=== PATIENT | female | born 1955 | race Caucasian/White ===

== ENCOUNTER 2018-12-30 20:26 | Emergency (ER) | payer OTHER ==
--- NOTE | 2018-12-30 21:33 | EDM.PDOC ---
ED HPI GENERAL MEDICAL PROBLEM - General Chief Complaint: Lower Extremity Injury/Pain Stated Complaint: fell and twisted left ankle Time Seen by Provider: 12/30/18 20:35 Source of Information: Reports: Patient History Limitations: Reports: No Limitations - History of Present Illness INITIAL COMMENTS - FREE TEXT/NARRATIVE: Patient comes to ER for evaluation of left ankle injury sustained at home when she tripped on a blanket. Able to partially bear weight. No numbness/tingling. Denies other injuries/problems. - Related Data Allergies Allergy/AdvReac Type Severity Reaction Status Date / Time ethylenediamine Allergy Nausea and Verified 12/30/18 20:30 Vomiting nickel Allergy unknown Verified 12/30/18 20:30 venlafaxine Allergy unknown Verified 12/30/18 20:30 Home Meds: Home Meds Albuterol [Proventil HFA] 2 puff INH Q4HR PRN 02/06/15 [History] Calcium Carbonate/Vitamin D3 [Calcium 500 + Vit D 400] 1 tab PO QAM 02/06/15 [ History] Citalopram [Citalopram HBr] 20 mg PO BEDTIME 02/06/15 [History] Tiotropium [Spiriva HandiHaler] 1 cap INH QAM 02/06/15 [History] Past Medical History Respiratory History: Reports: COPD Psychiatric History: Reports: Other (See Below) (mood disorder) Review of Systems - Review of Systems Review Of Systems: ROS reveals no pertinent complaints other than HPI. ED EXAM, GENERAL - Physical Exam Exam: See Below Exam Limited By: No Limitations General Appearance: Alert, WD/WN, No Apparent Distress Eye Exam: Bilateral Eye: EOMI, PERRL Throat/Mouth: Normal Voice, No Airway Compromise Head: Atraumatic, Normocephalic Neck: Supple Respiratory/Chest: No Respiratory Distress Peripheral Pulses: 2+: Dorsalis Pedis (L) Extremities: Other (mild swelling over lateral left ankle. Tender in this area. Tender over anterior distal fibula. Nontender medially. Foot otherwise nontender. NVI. Skin intact. No bruising/redness. ) Neurological: Alert, Oriented, Normal Cognition, Abnormal Gait (cannot fully bear weight on left ankle. ) Psychiatric: Normal Affect, Normal Mood Skin Exam: Warm, Dry, Intact, Normal Color Course - Vital Signs Last Recorded V/S: Last Vital Signs Temp Pulse 82 12/30/18 20:35 Resp 16 12/30/18 20:35 BP 150/73 H 12/30/18 20:35 Pulse Ox - Radiology Interpretation Free Text/Narrative:: Mild irregularity noted distal fibula above mortise. Not an obvious fracture, however is tender in this area. - Re-Assessments/Exams Free Text/Narrative Re-Assessment/Exam: 12/30/18 22:40 Uncertain if irregularity noted distal fibula represents fracture. Pending Radiology review. Placed in posterior splint for comfort and support. Patient refused crutches however. She promised to get help moving around the house from her as well as using furniture for support. Plan is to call her once reading has been obtained. Further planning at that time. Free Text/Narrative Re-Assessment/Exam: 01/02/19 04:11 Radiology review negative for acute fracture. Patient notified by nursing staff. Departure - Departure Time of Disposition: 21:31 Disposition: Home, Self-Care 01 Condition: Good Clinical Impression: Left ankle injury Qualifiers: Encounter type: initial encounter Qualified Code(s): S99.912A - Unspecified injury of left ankle, initial encounter - Discharge Information *PRESCRIPTION DRUG MONITORING PROGRAM REVIEWED*: Not Applicable *COPY OF PRESCRIPTION DRUG MONITORING REPORT IN PATIENT BIANCA: Not Applicable Instructions: Cast or Splint Care, Adult, [id number] Referrals: Rose Mary Busch PA-C [Primary Care Provider] - Forms: ED Department Discharge Additional Instructions: We plan on calling you when Radiology gives us an official xray reading. Further planning will depend on if they see if fracture or not. Avoid weight bearing on the injured ankle. OK to elevate for comfort. Tylenol ok for pain. Follow up otherwise as needed if there are additional problems.
[2018-12-31 00:23] VITALS: BP 150/73
== END 2018-12-30 23:15 | disposition home or self-care (01) ==
LOC: LL.ED 20:26
DX: S99.912A Unspecified injury of left ankle, initial encounter (principal); J44.9 Chronic obstructive pulmonary disease, unspecified; W22.8XXA Striking against or struck by other objects, initial encounter; Z88.8 Allergy status to other drugs, medicaments and biological substances; Z79.899 Other long term (current) drug therapy; Y92.009 Unspecified place in unspecified non-institutional (private) residence as the place of occurrence of the external cause
CPT/HCPCS: 29515; 73610-LT; 99283

== ENCOUNTER 2020-01-09 13:30 | Emergency (ER) | payer OTHER ==
[2020-01-09 13:50] VITALS: BP 141/71; PULSE 71
[2020-01-09 14:43] LABS: CHLORIDE,CL 105 mmol/L (98-107); SODIUM,NA 143 mmol/L (136-145)
--- NOTE | 2020-01-09 14:52 | EDM.PDOC ---
ED HPI GENERAL MEDICAL PROBLEM - General Chief Complaint: Upper Extremity Injury/Pain Stated Complaint: fall, left shoulder pain Time Seen by Provider: 01/09/20 13:55 Source of Information: Reports: Patient History Limitations: Reports: No Limitations - History of Present Illness INITIAL COMMENTS - FREE TEXT/NARRATIVE: Patient fell while coming down a ladder at work. Was not up very high. Estimates 3 feet. Ladder itself was around 6 feet. Hit back of left shoulder on metal display shelf (she thinks) on way to floor. Denies hitting head or LOC. Only complaint is pain in left scapular area. Initially pain was severe enough (9/10) that patient became nauseated. Received Fentanyl from EMS and pain improved significantly. Nausea resolved. Able to move left arm/shoulder better upon arrival to ER. Denies other pain/injuries. Able to get up off floor with assistance of another and ambulate/sit down. Left Shoulder Pain Score (Numeric/FACES): 2 - Related Data Allergies Allergy/AdvReac Type Severity Reaction Status Date / Time ethylenediamine Allergy Nausea and Verified 01/09/20 13:42 Vomiting nickel Allergy unknown Verified 01/09/20 13:42 venlafaxine Allergy unknown Verified 01/09/20 13:42 Home Meds: Home Meds Albuterol [Proventil HFA] 2 puff INH Q4HR PRN 02/06/15 [History] Calcium Carbonate/Vitamin D3 [Calcium 500 + Vit D 400] 1 tab PO QAM 02/06/15 [ History] Tiotropium [Spiriva HandiHaler] 1 cap INH QAM 02/06/15 [History] Cyanocobalamin (Vitamin B12) [Vitamin B12] 2 tab PO DAILY 01/09/20 [History] Ibuprofen 400 mg PO Q6H PRN 01/09/20 [History] Past Medical History HEENT History: Reports: Allergic Rhinitis, Impaired Vision Respiratory History: Reports: COPD [employer] History: Reports: Fibroids Psychiatric History: Reports: Other (See Below) (mood disorder) Hematologic History: Reports: B12 Deficiency, Blood Transfusion(s) Other Hematologic History: transfusion 1982 post surgical hemmorrhage - Past Surgical History GI Surgical History: Reports: Colonoscopy, EGD Female Surgical History: Reports: Hysterectomy Social & Family History - Tobacco Use Smoking Status *Q: Current Every Day Smoker Years of Tobacco use: 43 Packs/Tins Daily: 0.5 Second Hand Smoke Exposure: No - Caffeine Use Caffeine Use: Reports: Coffee Review of Systems - Review of Systems Review Of Systems: See Below Constitutional: Reports: No Symptoms Eyes: Reports: No Symptoms Ears: Reports: No Symptoms Nose: Reports: No Symptoms Mouth/Throat: Reports: No Symptoms Respiratory: Reports: No Symptoms. Denies: Shortness of Breath, Pleuritic Chest Pain, Hemoptysis Cardiovascular: Reports: No Symptoms GI/Abdominal: Reports: No Symptoms Genitourinary: Reports: No Symptoms Musculoskeletal: Reports: Other (pain left scapular area. Radiates towards neck. Denies pain in shoulders/arms/legs. ) Skin: Reports: Other (abrasion over left scapular area) Neurological: Reports: No Symptoms Psychiatric: Reports: No Symptoms ED EXAM, GENERAL - Physical Exam Exam: See Below Exam Limited By: No Limitations General Appearance: Alert, WD/WN, No Apparent Distress Eye Exam: Bilateral Eye: EOMI, PERRL Ears: Normal External Exam, Normal Canal Nose: No: Nasal Deformity, Nasal Swelling, Nasal Drainage Throat/Mouth: Normal Lips, Normal Voice, No Airway Compromise Head: Atraumatic, Normocephalic Neck: Supple, Full Range of Motion, Other (mild tenderness left posterior soft tissue). No: Tender Midline Respiratory/Chest: No Respiratory Distress, Lungs Clear, Normal Breath Sounds, No Accessory Muscle Use, Other (Tender with palpation over left scapula/ trapezius. Does not appear to have any tenderness with palpation of ribs/chest anteriorly or laterally. Right back nontender. Low back non-tender. Spine non- tender.) Cardiovascular: Normal Peripheral Pulses, Regular Rate, Rhythm, No Edema, No Murmur GI/Abdominal: Normal Bowel Sounds, Soft, Non-Tender, No Distention (Female) Exam: Deferred Rectal (Female) Exam: Deferred Back Exam: Other (10cm linear abrasion with mild swelling directly over left scapula. No spinal tenderness. Overall good ROM of left shoulder when tested, some pain limitation when patient tried to put left hand behind her. No crepitus over scapula. Right back non-tender. Left low back nontender. Shoulders non-tender) Extremities: Non-Tender, Normal Capillary Refill, Limited Range of Motion (left shoulder with posterior rotation. Able to touch hand behind back. ). No: Joint Swelling, Increased Warmth, Mottled, Pallor, Redness Neurological: Alert, Oriented, Normal Cognition, Normal Gait, No Motor/Sensory Deficits Psychiatric: Normal Affect, Normal Mood Skin Exam: Warm, Dry, Intact, Other (abrasion on back ) Course - Vital Signs Last Recorded V/S: Last Vital Signs Temp 36.1 C 01/09/20 13:36 Pulse 71 01/09/20 13:49 Resp 17 01/09/20 13:36 BP 141/71 H 01/09/20 13:49 Pulse Ox 96 01/09/20 13:49 - Orders/Labs/Meds Orders: Active Orders 24 hr Category Date Time Status Cervical Spine 2V or 3V [CR] Stat Exams 01/09/20 14:10 Ordered Scapula Lt [CR] Stat Exams 01/09/20 13:30 Ordered Labs: Laboratory Tests 01/09/20 01/09/20 01/09/20 Range/Units 14:20 14:20 14:45 WBC 8.3 (4.0-10.2) K/uL RBC 4.12 (3.77-5.09) M/uL Hgb 13.5 (11.7-15.5) g/dL Hct 41.0 (34.0-46.0) % MCV 99.5 H D (84.0-98.0) fL MCH 32.8 (28.2-33.3) pg MCHC 32.9 (31.7-36.0) g/dL RDW 12.6 (11.2-14.1) % Plt Count 225 (150-350) K/uL Neut % (Auto) 70.1 (45.0-80.0) % Lymph % (Auto) 19.5 (10.0-50.0) % [place] % (Auto) 8.9 (2.0-14.0) % Eos % (Auto) 1.1 (0.0-5.0) % Baso % (Auto) 0.4 (0.0-2.0) % Neut # (Auto) 5.84 (1.40-7.00) K/uL Lymph # (Auto) 1.62 (0.50-3.50) K/uL [place] # (Auto) 0.74 (0.00-1.00) K/uL Eos # (Auto) 0.09 (0.00-0.50) K/uL Baso # (Auto) 0.03 (0.00-0.20) K/uL Sodium 143 (136-145) mmol/L Potassium 3.6 (3.5-5.1) mmol/L Chloride 105 (98-107) mmol/L Carbon Dioxide 30.2 (21.0-32.0) mmol/L BUN 12 (7-18) mg/dL Creatinine 0.77 (0.51-1.17) mg/dL Est Cr Clr Drug Dosing 61.86 mL/min Estimated GFR (MDRD) > 60 mL/min Glucose 52 L (74-106) mg/dL Calcium 8.8 (8.5-10.1) mg/dL Magnesium 2.0 (1.8-2.4) mg/dL Total Bilirubin 0.7 (0.2-1.0) mg/dL AST 18 (15-37) U/L ALT 21 (12-78) U/L Alkaline Phosphatase 74 (46-116) IU/L Total Protein 6.7 (6.4-8.2) g/dL Albumin 3.8 (3.4-5.0) g/dL Specimen Type Urinblad Urine Color Yellow Urine Appearance Clear Urine pH 5.5 (5.0-9.0) Ur Specific [place] 1.015 (1.005-1.030) Urine Protein 30 H (NEGATIVE) mg/dL Urine Glucose (UA) Negative (NEGATIVE) mg/dL Urine Ketones Trace H (NEGATIVE) mg/dL Urine Occult Blood Negative (NEGATIVE) Urine Nitrite Negative (NEGATIVE) Urine Bilirubin Negative (NEGATIVE) Urine Urobilinogen 0.2 (0.2-1.0) E.U./dL Ur Leukocyte Esterase Negative (NEGATIVE) Urine RBC 0-5 /HPF Urine WBC 5-10 H /HPF Ur Epithelial Cells Few /LPF Urine Bacteria Few (NONE TO FEW) /HPF Urine Mucus Moderate H (NEGATIVE) /LPF - Re-Assessments/Exams Free Text/Narrative Re-Assessment/Exam: No further pain medications required. Patient much happier per self report since receiving Fentanyl. Xray of CSpine and left scapula performed. No obvious fractures noted. Degenerative changes noted in C-spine. Pending Radiology review. CBC/Chem unremarkable overall. Blood sugar 52. Patient denies feeling woozy/ poorly and said that she had eaten lunch. Declined food/juice when offered. Encouraged to eat something after discharge from ER. Precautions reviewed. To follow up as needed. No work today and tomorrow. Be seen at clinic for recheck if work restrictions needed. Departure - Departure Time of Disposition: 15:12 Disposition: Home, Self-Care 01 Condition: Good Clinical Impression: Contusion of left scapular region Qualifiers: Encounter type: initial encounter Qualified Code(s): S40.012A - Contusion of left shoulder, initial encounter Fall Qualifiers: Encounter type: initial encounter Qualified Code(s): W19.XXXA - Unspecified fall, initial encounter - Discharge Information *PRESCRIPTION DRUG MONITORING PROGRAM REVIEWED*: Not Applicable *COPY OF PRESCRIPTION DRUG MONITORING REPORT IN PATIENT BIANCA: Not Applicable Instructions: Shoulder Pain, [id number], Contusion, [id number] Referrals: PCP,Unknown [Ordering Only Provider] - Forms: ED Department Discharge Additional Instructions: Take it easy over the next few days. Ice may help pain. Ok to use Aleve or Ibuprofen. Ok to use Tylenol. Follow up for recheck in two days if still having significant discomfort or further work restrictions needed. Sepsis Event Note - Evaluation Sepsis Screening Result: No Definite Risk - Focused Exam Vital Signs: Vital Signs Temp Pulse Resp BP Pulse Ox 01/09/20 13:49 71 141/71 H 96 01/09/20 13:36 36.1 C 73 17 109/75 95 Date Exam was Performed: 01/09/20 Time Exam was Performed: 15:23 - My Orders Last 24 Hours: My Active Orders 01/09/20 13:30 Scapula Lt [CR] Stat 01/09/20 14:10 Cervical Spine 2V or 3V [CR] Stat - Assessment/Plan Last 24 Hours: My Active Orders 01/09/20 13:30 Scapula Lt [CR] Stat 01/09/20 14:10 Cervical Spine 2V or 3V [CR] Stat
== END 2020-01-09 15:35 | disposition home or self-care (01) ==
LOC: LL.ED 13:30
DX: S40.012A Contusion of left shoulder, initial encounter (principal); J44.9 Chronic obstructive pulmonary disease, unspecified; F17.210 Nicotine dependence, cigarettes, uncomplicated; Z88.8 Allergy status to other drugs, medicaments and biological substances; Z91.09 Other allergy status, other than to drugs and biological substances; Z79.51 Long term (current) use of inhaled steroids; W11.XXXA Fall on and from ladder, initial encounter; Y92.512 Supermarket, store or market as the place of occurrence of the external cause; Y99.0 Civilian activity done for income or pay
CPT/HCPCS: 36415; 72040; 73010-LT; 80053; 81001; 83735; 85025; 99284-25

== ENCOUNTER 2022-12-17 09:44 | Day surgery (SDC) | payer MEDICARE, OTHER ==
[~2022-12-17 09:44] MED LIST: Midazolam 1 MG/ML 2 ML SDV ONE; Propofol 200 MG/20 ML SDV ONE; Sodium Chloride 0.9% 10 ML Syringe FLUSH PRN
[2022-12-17] MEDS: Lactated Ringers 1,000 ML IV SCH (10:08)
[2022-12-17 17:40] VITALS: BP 134/76; PULSE 84
== END 2022-12-17 12:15 | disposition home or self-care (01) ==
LOC: LL.SDS 09:44
PROVIDERS: ATTEND Surgery
DX: Z12.11 Encounter for screening for malignant neoplasm of colon (principal); D12.3 Benign neoplasm of transverse colon; J44.9 Chronic obstructive pulmonary disease, unspecified; E78.5 Hyperlipidemia, unspecified; F41.9 Anxiety disorder, unspecified; F33.9 Major depressive disorder, recurrent, unspecified; G47.33 Obstructive sleep apnea (adult) (pediatric); Z79.899 Other long term (current) drug therapy; Z86.010 Personal history of colon polyps; Z87.891 Personal history of nicotine dependence; Z88.5 Allergy status to narcotic agent; Z91.048 Other nonmedicinal substance allergy status; Z88.6 Allergy status to analgesic agent
CPT/HCPCS: J2250; J2704; J7120